=== PATIENT | female | born 1990 | race Caucasian/White ===

== ENCOUNTER 2017-04-28 21:49 | Emergency (ER) | payer BC, OTHER ==
--- NOTE | 2017-04-28 22:09 | ERPHSYRPT ---
- History of Present Illness Time Seen by Provider: 04/28/17 22:02 Source: patient Exam Limitations: no limitations Physician History: 26 y/o female with history of strep throat comes to the ER with complaints of sore throat for the past 2 days. Pt admits to tender lymph nodes. No fever or chills. Pt does admit to shortness of breath due to sore throat. Pt has not taken any over the counter meds. Timing/Duration: gradual onset Severity: moderate ENT Location: throat Prearrival Treatment: no prearrival treatment Modifying Factors: Improves With: nothing Associated Symptoms: cough, swollen glands Allergies/Adverse Reactions: No Known Drug Allergies Allergy (Unverified 03/05/14 11:43) Home Medications: Desvenlafaxine Succinate [Pristiq ER] 50 mg PO DAILY 09/09/14 [History] Hx Tetanus, Diphtheria Vaccination/Date Given: Yes (2013) Hx Influenza Vaccination/Date Given: No Hx Pneumococcal Vaccination/Date Given: Yes - Review of Systems Constitutional: No Fever, No Chills Eyes: No Symptoms Ears, Nose, & Throat: No Symptoms, Throat Pain, Painful Swallowing Respiratory: Dyspnea, No Cough Cardiac: No Chest Pain, No Edema, No Syncope Abdominal/Gastrointestinal: No Abdominal Pain, No Nausea, No Vomiting, No Diarrhea Genitourinary Symptoms: No Dysuria Musculoskeletal: No Back Pain, No Neck Pain Skin: No Rash Neurological: No Dizziness, No Focal Weakness, No Sensory Changes Psychological: No Symptoms Endocrine: No Symptoms All Other Systems: Reviewed and Negative - Past Medical History Pertinent Past Medical History: No Psycho-Social History: Anxiety (on Paxil) - Past Surgical History Past Surgical History: No Other Surgical History: RETINAL SURGERY--AGE 13 (INJURY) - Social History Smoking Status: Never smoker Exposure to second hand smoke: No Drug Use: none Patient Lives Alone: No - Female History Hx Now: No - Physical Exam General Appearance: no apparent distress, alert Eye Exam: bilateral eye: PERRL, EOMI Nasal Exam: normal inspection Throat Exam: pharynx normal, moist mucus membranes, pharynx swelling, pharynx tenderness, No tonsillar exudate Neck Exam: supple, lymphadenopathy (R), lymphadenopathy (L) Cardiovascular/Respiratory Exam: normal breath sounds, regular rate/rhythm Abdominal Exam: non-tender, soft Neurologic Exam: alert, oriented x 3, sensation nml, No motor deficits Skin Exam: normal color, warm, dry - Course Nursing assessment & vital signs reviewed: Yes - Progress Progress: unchanged Progress Note: 04/28/17 22:09 Pt says that when she gets strep throat, she usually receives rocephin and gets better. Pt will receive a dose of rocephin 1 gram IM X 1 dose. - Departure Time of Disposition: 22:10 Departure Disposition: Home Clinical Impression: Strep throat Condition: Stable Critical Care Time: No Instructions: Strep Throat Additional Instructions: Follow up with your primary care doctor if you should continue to have sore throat, neck pain, cough, shortness of breath, fever or chills.
[2017-04-28] MEDS ORDERED: Rocephin 1000 MG INJ IM ONE (22:12)
[2017-04-28] MEDS ORDERED: Rocephin 1000 MG INJ ONE (22:15)
[2017-04-28 22:42] VITALS: BP 112/72; PULSE 76; O2SAT 97
== END 2017-04-28 22:55 | disposition home or self-care (01) ==
LOC: ED 21:49
DX: J02.0 Streptococcal pharyngitis (principal)
CPT/HCPCS: 96372; 99282; J0696